=== PATIENT | female | born 2000 | race Hispanic/Latino ===

== ENCOUNTER → 2020-09-24 | Outpatient (CLI) | payer OTHER ==
--- NOTE | 2020-09-24 11:47 | REP ---
INDICATION: STRESS FRACTURE, RIGHT TIBIA, SEQUELA FILE ROOM. COMPARISON: None. TECHNIQUE/RADIOTRACER AND DOSE: Following the intravenous administration of 22 mCi technetium 99 M MDP, multiple images are obtained in various projections of the lower legs in the flow phase, immediate blood pool phase and 3 hour delayed phases of imaging. FINDINGS: There is symmetrical blood flow bilaterally. Blood pool images show relatively symmetrical blood pooling. The delayed images show mild increased uptake along the tibial shafts bilaterally diffusely. Findings are compatible with bilateral stress periostitis of the tibias, or rivas splints. No focal stress fracture is seen. IMPRESSION: Bilateral stress periostitis of the tibias, or rivas splints. No focal stress fracture identified. <Electronically signed by Jason Lira > 09/24/20 0015
== END ==
LOC: M RAD 07:21
PROVIDERS: ATTEND Physician Assistant
DX: M84.361A Stress fracture, right tibia, initial encounter for fracture (principal); M89.8X6 Other specified disorders of bone, lower leg; X50.9XXA Other and unspecified overexertion or strenuous movements or postures, initial encounter; Y92.9 Unspecified place or not applicable
CPT/HCPCS: 78315; A9503

== ENCOUNTER → 2020-11-25 | Outpatient (CLI) | payer OTHER | LOC: M OUTALCOH 10:02 | PROVIDERS: ATTEND Psychiatry & Neurology Addiction Medicine | DX: F10.10 Alcohol abuse, uncomplicated (principal) ==

== ENCOUNTER 2020-12-09 16:04 | Emergency (ER) | payer OTHER ==
[~2020-12-09] VITALS: Ht 149.9 cm; Wt 58.3 kg
--- OUTSIDE RECORDS SUMMARY | 2020-12-09 16:14 | CCD ---
Author Author [facility] Organization [facility] Address Unknown Phone Unavailable Support Name Relationship Address Phone ROSITAMadalyn ABHILASH Next Of Kin [address] [place] [address] DOMINGUEZBETH SOUSA Next Of Kin [address] [place] [address] [facility] Next Of Kin [address] [place] [address] Unavailable Re-disclosure Warning The records that you are about to access may contain information from federally-assisted alcohol or drug abuse programs. If such information is present, then the following federally mandated warning applies: This information has been disclosed to you from records protected by federal confidentiality rules (42 CFR part 2). The federal rules prohibit you from making any further disclosure of this information unless further disclosure is expressly permitted by the written consent of the person to whom it pertains or as otherwise permitted by 42 CFR part 2. A general authorization for the release of medical or other information is NOT sufficient for this purpose. The Federal rules restrict any use of the information to criminally investigate or prosecute any alcohol or drug abuse patient.The records that you are about to access may contain highly sensitive health information, the redisclosure of which is protected by Article 27-F of the [facility] Public Health law. If you continue you may have access to information: Regarding HIV / AIDS; Provided by facilities licensed or operated by the [facility] Office of Mental Health; or Provided by the [facility] Office for People With Developmental Disabilities. If such information is present, then the following [facility] mandated warning applies: This information has been disclosed to you from confidential records which are protected by state law. State law prohibits you from making any further disclosure of this information without the specific written consent of the person to whom it pertains, or as otherwise permitted by law. Any unauthorized further disclosure in violation of state law may result in a fine or usp sentence or both. A general authorization for the release of medical or other information is NOT sufficient authorization for further disc losure. Insurance Providers Payer name Policy type / Coverage type Policy ID Covered democrat ID Covered democrat's relationship to fuentes Policy Fuentes Plan Information [employer]AST ACTIVE DUTY [id number] SP [id number] [employer] O [id number] S [id number] ACTIVE DUTY [id number] SP [id number] Results ID Date Data Source [id number] 12/03/2020 12:00:00 AM EST [facility] Name Value Range Interpretation Code Description Data Nicole rce(s) Supporting Document(s) SARS-CoV-2 NEGATIVE [facility] This lab was ordered by [facility] [id number] and reported by [employer]. ID Date Data Source [id number] 12/02/2020 12:00:00 AM EST [facility] Name Value Range Interpretation Code Description Data Nicole rce(s) Supporting Document(s) SARS-CoV-2 RT-PCR negative [facility] This lab was ordered by [employer] and re ported by [facility]. Procedure
--- OUTSIDE RECORDS SUMMARY | 2020-12-09 17:44 | CCD ---
Author Author [facility] Organization [facility] Address Unknown Phone Unavailable Support Name Relationship Address Phone ROSITAMadalyn ABHILASH Next Of Kin [address] [place] [address] DOMINGUEZBETH SOUSA Next Of Kin [address] [place] [address] [facility] Next Of Kin [address] [place] [address] Unavailable Re-disclosure Warning The records that you [...] by Article 27-F of the [facility] Public Health law. If you continue you may have access to information: Regarding HIV / AIDS; Provided by facilities licensed or operated by the [facility] Office of Mental Health; or Provided by the [facility] Office for People With Developmental Disabilities. If such information is present, then the following [facility] mandated warning applies: This information [...] law may result in a fine or snf sentence or both. A general authorization for the release of medical or other information is NOT sufficient authorization for further disc losure. Insurance Providers Payer name Policy type / Coverage type Policy ID Covered libertarian ID Covered libertarian's relationship to fuentes Policy Fuentes Plan Information [employer] ACT[employer] D[employer]Y [id number] SP [id number] [employer] EAST REG O [id number] S [id number] ACTIVE DUTY [id number] SP [id number] Results ID Date Data Source [id number] 12/03/2020 12:00:00 AM EST [facility] Name Value Range Interpretation Code Description Data Nicole rce(s) Supporting Document(s) SARS-CoV-2 NEGATIVE [facility] This lab was ordered by [facility] [id number] and reported by [employer]. ID Date Data Source [id number] 12/02/2020 12:00:00 AM EST [facility] Name Value Range Interpretation Code Description Data Nicole rce(s) Supporting Document(s) SARS-CoV-2 RT-PCR negative [facility] This lab was ordered by [employer] and re ported by [employer]. Procedure
[2020-12-09 18:10] VITALS: BP 128/82
== END 2020-12-09 18:13 | disposition home or self-care (01) ==
LOC: M ED 16:04
DX: Z11.52 Encounter for screening for COVID-19 (principal); J06.9 Acute upper respiratory infection, unspecified; B34.9 Viral infection, unspecified
CPT/HCPCS: 99283; U0003

== ENCOUNTER 2020-12-19 08:00 | Outpatient (RCR) | payer OTHER | END 2020-12-22 | LOC: M OUTALCOH 08:00 | PROVIDERS: ATTEND Psychiatry & Neurology Addiction Medicine | DX: F10.10 Alcohol abuse, uncomplicated (principal) ==

== ENCOUNTER 2021-01-16 08:00 | Outpatient (RCR) | payer OTHER | END 2021-01-19 | LOC: M OUTALCOH 08:00 | PROVIDERS: ATTEND Psychiatry & Neurology Psychiatry | DX: F10.10 Alcohol abuse, uncomplicated (principal) ==

== ENCOUNTER 2021-02-17 08:00 | Outpatient (RCR) | payer OTHER | END 2021-02-19 | LOC: M OUTALCOH 08:00 | PROVIDERS: ATTEND Psychiatry & Neurology Addiction Medicine | DX: F10.10 Alcohol abuse, uncomplicated (principal) ==

== ENCOUNTER 2021-03-09 09:32 | Emergency (ER) | payer OTHER ==
[~2021-03-09] VITALS: Ht 149.9 cm; Wt 59.4 kg
[2021-03-09 13:06] VITALS: BP 146/71
== END 2021-03-09 13:07 | disposition home or self-care (01) ==
LOC: M ED 09:32
DX: Z11.52 Encounter for screening for COVID-19 (principal); R51.9 Headache, unspecified

== ENCOUNTER 2021-03-20 08:00 | Outpatient (RCR) | payer OTHER | END 2021-03-21 | LOC: M OUTALCOH 08:00 | PROVIDERS: ATTEND Psychiatry & Neurology Psychiatry | DX: F10.10 Alcohol abuse, uncomplicated (principal) ==

== ENCOUNTER 2021-04-18 08:00 | Outpatient (RCR) | payer OTHER | END 2021-04-21 | LOC: M OUTALCOH 08:00 | PROVIDERS: ATTEND Psychiatry & Neurology Psychiatry | DX: F10.10 Alcohol abuse, uncomplicated (principal) ==

== ENCOUNTER 2021-05-19 15:20 | Outpatient (RCR) | payer OTHER | END 2021-05-21 | LOC: M OUTALCOH 15:20 | PROVIDERS: ATTEND Psychiatry & Neurology Psychiatry | DX: F10.10 Alcohol abuse, uncomplicated (principal) ==

== ENCOUNTER 2021-06-19 08:00 | Outpatient (RCR) | payer OTHER | END 2021-06-21 | LOC: M OUTALCOH 08:00 | PROVIDERS: ATTEND Psychiatry & Neurology Psychiatry | DX: F10.10 Alcohol abuse, uncomplicated (principal) ==

== ENCOUNTER 2021-07-10 14:07 | Outpatient (RCR) | payer OTHER ==
[2021-07-16] MEDS ORDERED: ACET325C5 PO (18:52)
== END 2021-07-22 ==
LOC: M OUTALCOH 14:07
PROVIDERS: ATTEND Psychiatry & Neurology Psychiatry
DX: F10.10 Alcohol abuse, uncomplicated (principal)

== ENCOUNTER 2021-07-16 13:21 | Emergency (ER) | payer OTHER ==
[~2021-07-16] VITALS: Ht 149.9 cm; Wt 53.2 kg
[2021-07-16 13:22] VITALS: BP 142/88
--- NOTE | 2021-07-16 17:58 | REP ---
INDICATION: trauma, crush injury. COMPARISON: None. TECHNIQUE: Four views of the right hand. FINDINGS: Four views of the right hand demonstrate transversely oriented fractures through the proximal ends of the 2nd, 3rd and 4th metacarpals. There is diffuse dorsal soft tissue swelling. The fracture nondisplaced. No carpal, distal radial or ulnar, or phalangeal fracture no malalignment. Is appreciated. No opaque foreign body noted. IMPRESSION: Nondisplaced transversely oriented fracture through the proximal ends of the 2nd, 3rd, and 4th metacarpals. <Electronically signed by Chapin Faustin > 07/16/21 [id number]
--- NOTE | 2021-07-16 17:59 | REP ---
INDICATION: trauma, crush injury. COMPARISON: None. TECHNIQUE: Four views of the right wrist. FINDINGS: Four views of the right wrist demonstrate nondisplaced transversely oriented fracture through the proximal ends of the right 2nd, 3rd, and 4th metacarpals with associated dorsal soft tissue swelling. No malalignment. No carpal or distal forearm fracture is seen. IMPRESSION: Nondisplaced transversely oriented fracture through the proximal ends of the 2nd, 3rd, and 4th metacarpals. <Electronically signed by Chapin Faustin > 07/16/21 [id number]
--- NOTE | 2021-07-16 18:01 | REP ---
INDICATION: trauma, crush injury. COMPARISON: None. TECHNIQUE: AP and lateral views of the right forearm. FINDINGS: AP and lateral views of the right forearm demonstrate soft tissue swelling over the carpus and metacarpals dorsally on the lateral film. No radial or ulnar fracture is appreciated. Proximal metacarpal fractures as described on wrist and hand radiographs. No opaque foreign body noted. IMPRESSION: No forearm fracture seen. <Electronically signed by Chapin Faustin > 07/16/21 [id number]
[2021-07-16] MEDS ORDERED: ACETAMINOPHEN TAB 650MG DOSE (2X325MG) PO ONE (18:40)
[2021-07-16] MEDS ORDERED: ACET325C5 PO (18:52)
== END 2021-07-16 19:30 | disposition home or self-care (01) ==
LOC: M ED 13:21
DX: S62.340A Nondisplaced fracture of base of second metacarpal bone, right hand, initial encounter for closed fracture (principal); S62.352A Nondisplaced fracture of shaft of third metacarpal bone, right hand, initial encounter for closed fracture; S62.344A Nondisplaced fracture of base of fourth metacarpal bone, right hand, initial encounter for closed fracture; W23.1XXA Caught, crushed, jammed, or pinched between stationary objects, initial encounter; X50.0XXA Overexertion from strenuous movement or load, initial encounter; Y93.9 Activity, unspecified; Y92.9 Unspecified place or not applicable; Y99.1 Military activity

== ENCOUNTER → 2021-08-21 | Outpatient (RCR) | payer OTHER ==
[~2021-08-21] MED LIST: ACET325C5 PO
== END ==
LOC: M OUTALCOH 13:01
PROVIDERS: ATTEND Psychiatry & Neurology Psychiatry
DX: F10.10 Alcohol abuse, uncomplicated (principal)

== ENCOUNTER → 2021-09-10 | Outpatient (CLI) | payer OTHER | LOC: M PLALAB 10:33 | PROVIDERS: ATTEND Psychiatry & Neurology Psychiatry | DX: F10.20 Alcohol dependence, uncomplicated (principal) ==

== ENCOUNTER 2021-10-01 13:33 | Outpatient (RCR) | payer OTHER | END 2021-10-21 | LOC: M OUTALCOH 13:33 | PROVIDERS: ATTEND Psychiatry & Neurology Psychiatry | DX: F10.10 Alcohol abuse, uncomplicated (principal) ==

== ENCOUNTER 2021-11-03 13:31 | Outpatient (RCR) | payer OTHER | END 2021-11-21 | LOC: M OUTALCOH 13:31 | PROVIDERS: ATTEND Psychiatry & Neurology Psychiatry | DX: F10.10 Alcohol abuse, uncomplicated (principal) ==

== ENCOUNTER 2021-12-11 09:09 | Outpatient (RCR) | payer OTHER | END 2021-12-22 | LOC: M OUTALCOH 09:09 | PROVIDERS: ATTEND Psychiatry & Neurology Psychiatry | DX: F10.10 Alcohol abuse, uncomplicated (principal) ==

== ENCOUNTER 2022-01-23 09:23 | Emergency (ER) | payer OTHER ==
[~2022-01-23] VITALS: Ht 149.9 cm; Wt 54.8 kg
[2022-01-23 12:29] LABS: BASO % 0.3 % (0.0-1.0); EOS # 0.1 10^3/uL (0.0-0.5); EOS % 1.3 % (0.0-3.0); HEMOGLOBIN 13.8 g/dl (12.0-15.5); LYMPH # 2.1 10^3/uL (1.5-5.0); LYMPH % 33.7 % (24.0-44.0); MEAN CORPUSCULAR HEMOGLOBIN 30.5 pg (27.0-33.0); MEAN CORPUSCULAR HGB CONC 34.5 g/dl (32.0-36.5); MEAN CORPUSCULAR VOLUME 88.3 fl (80.0-96.0); MONO # 0.5 10^3/uL (0.0-0.8); MONO % 8.4 % (2.0-8.0); NEUTROPHILS # 3.5 10^3/uL (1.5-8.5); NEUTROPHILS % 56.1 % (36.0-66.0); PLATELET COUNT, AUTOMATED 156 10^3/uL (150-450); RED BLOOD COUNT 4.53 10^6/uL (4.00-5.40); WHITE BLOOD COUNT 6.2 10^3/uL (4.0-10.0)
[2022-01-23 12:58] LABS: BLOOD UREA NITROGEN 10 MG/DL (7-18); CALCIUM LEVEL 9.2 MG/DL (8.5-10.1); CARBON DIOXIDE LEVEL 26 MEQ/L (21-32); CHLORIDE LEVEL 110 MEQ/L (98-107); CREATININE FOR GFR 0.63 MG/DL (0.55-1.30); GLOMERULAR FILTRATION RATE > 60.0 (>60); GLUCOSE, FASTING 102 MG/DL (70-100); POTASSIUM SERUM 4.2 MEQ/L (3.5-5.1); SODIUM LEVEL 141 MEQ/L (136-145)
[2022-01-23 13:34] VITALS: BP 128/79
[2022-01-23 14:30] LABS: GC DNA AMPLIFICATION NEGATIVE (NEGATIVE)
== END 2022-01-23 13:43 | disposition home or self-care (01) ==
LOC: M ED 09:23
DX: T19.2XXA Foreign body in vulva and vagina, initial encounter (principal); Y92.9 Unspecified place or not applicable; Y93.9 Activity, unspecified; Y99.9 Unspecified external cause status

== ENCOUNTER 2022-01-27 16:58 | Outpatient (RCR) | payer OTHER | END 2022-02-19 | LOC: M OUTALCOH 16:58 | PROVIDERS: ATTEND Psychiatry & Neurology Psychiatry | DX: F10.10 Alcohol abuse, uncomplicated (principal) ==

== ENCOUNTER → 2022-03-16 | Outpatient (REF) | LOC: M PLAIMG 12:09 | PROVIDERS: ATTEND Internal Medicine | DX: M79.641 Pain in right hand (principal); M79.661 Pain in right lower leg; M79.662 Pain in left lower leg ==